=== PATIENT | female | born 1955 | race Caucasian/White ===

== ENCOUNTER → 2016-05-26 | Day surgery (SDC) | payer BC ==
[~2016-05-26] MED LIST: ACETAMINOPHEN 325 MG TAB ONE; KETOROLAC TROMETHAMINE 30 MG/ML (IVP) VIAL IV PUSH ONE; LACTATED RINGER'S 1000 ML INJ 1,000 ML ONE; ONDANSETRON HCL 4 MG/2 ML VIAL IV PUSH ONE; PROPOFOL 200 MG/20 ML AMP IV ONE; TRIAMCINOLONE ACETONIDE 40 MG/ML VIAL ONE; ceFAZolin INJ 1,000 MG VIAL ONE
--- NOTE | 2016-05-26 09:37 | TN ---
cc: ANAHI MEZA M.D. DATE OF SURGERY: May 26, 2016 PREOPERATIVE DIAGNOSIS Right knee internal derangement. POSTOPERATIVE DIAGNOSIS Right knee medial meniscus tear, medial compartment severe Osteoarthritis, patellofemoral compartment mild osteoarthritis. PROCEDURE Right knee arthroscopic surgery - subtotal medial meniscectomy. SURGEON Dontae Meza MD SLURRY CONTROL OPERATOR HELPER TAVARES Kaye SPECIMEN None. ESTIMATED BLOOD LOSS None. COMPLICATIONS None. ANESTHESIA General LMA - Dr. Harrington. DRAIN None. TOURNIQUET TIME 12 minutes at 250 mmHg. CONDITION Stable. PLAN OF ACTIVITY Per orders. PROCEDURE My melter assistant TAVARES Kaye was present for the entire surgical case. She was medically necessary for the entire case because of the complexity of the case and to facilitate the performance of the procedure. The CALENDER FEEDER at the back table was not a skill set for this case to manipulate the instruments, e.g., the arthroscopy, arthroscopic meniscal rongeurs and arthroscopic nani. The patient was brought in the operating room and had satisfactory general anesthesia by Dr. Harrington, Department of Anesthesia. Right lower extremity was prepped and draped in usual sterile manner. The extremity was exsanguinated by Rickey wrap. The tourniquet was inflated to 250 mmHg. Routine anterolateral and anterior medial incision was made to the knee. The arthroscopic instruments were introduced into the knee, the knee was inflated and irrigated with sterile Ringer's lactated solution. Patellofemoral compartment revealed mild degree of synovitis. No evidence of any cartilaginous loose bodies. Patellofemoral compartment revealed mild degree of chondromalacia of the femoral trochlear groove and the undersurface of the patella. Lateral compartment showed normal lateral meniscus and normal lateral articular surface. Anterior cruciate ligament was found to be intact. Medial compartment showed the patient to have a posterior medial meniscus tear. The patient had more than expected arthritis involving the medial compartment. The patient had exposed bone involving almost the entire medial femoral condyle and the medial tibial plateau. Subtotal meniscectomy was performed. The knee was irrigated with different types of meniscal rongeurs and nani. The wound was irrigated with copious amounts of Ringer's lactated solution. Arthroscopic instruments were removed. Tourniquet was deflated. Incisions were repaired using multiple interrupted 3-0 Nylon suture. Sterile dressing was applied. The patient tolerated the procedure well and arrived in the recovery room in stable and satisfactory conditon. MD YENIFER Nicholson/FLORA /9:16 AM /9:22 AM
== END | disposition home or self-care (01) ==
LOC: ESDC 07:20
PROVIDERS: ATTEND Orthopaedic Surgery Orthopaedic Surgery of the Spine
DX: S83.241A Other tear of medial meniscus, current injury, right knee, initial encounter (principal)
CPT/HCPCS: 01400; 29881; J0690; J1885; J2405; J3010; J3301; J7120

== ENCOUNTER 2016-10-28 11:54 | Emergency (ER) | payer BC ==
[~2016-10-28] VITALS: Ht 160 cm; Wt 75.0 kg
[2016-10-28 11:55] VITALS: BP 184/100; PULSE 100; RESP 20; TEMP 97.8; O2SAT 97
--- NOTE | 2016-10-28 12:05 | PD ---
Physical Exam Time Seen by Provider: 12:01 Narrative 61yo F c/o left mid back pain x 2 weeks. Worse with movement. Seen at urgent care one week ago and had chest x-ray which was negative; had UA and was told she had blood WBC and blood and has been taking Cipro. Denies urinary symptoms , abd pain. Denies chest pain, SOB in triage. Concerned of possible kidney infection. Patient seen in triage. VS reviewed. Awaiting bed placement. Data Data Last Documented VS Vital Signs Date Time Temp Pulse Resp B/P Pulse Ox O2 Delivery O2 Flow Rate FiO2 10/28/16 12:41 99 Room Air 10/28/16 11:55 97.8 100 20 184/100 Orders Electrocardiogram (10/28/16 12:29) Ckmb (Isoenzyme) Profile (10/28/16 12:29) Complete Blood Count With Diff (10/28/16 12:29) Comprehensive Metabolic Panel (10/28/16 12:29) D-Dimer (10/28/16 12:29) Magnesium (Mg) (10/28/16 12:29) Prothrombin Time / Inr (Pt) (10/28/16 12:29) Act Partial Throm Time (Ptt) (10/28/16 12:29) Troponin I (10/28/16 12:29) Lipase (10/28/16 12:29) Chest, Single Ap (10/28/16 12:29) Ecg Monitoring (10/28/16 12:29) Bilateral Bp Monitoring (10/28/16 12:29) Iv Access Insert/Monitor (10/28/16 12:29) Oximetry (10/28/16 12:29) Oxygen Administration (10/28/16 12:29) Aspirin Chew (Aspirin Chew) (10/28/16 12:30) Sodium Chloride 0.9% Flush (Ns Flush) (10/28/16 12:30) Urinalysis - C+S If Indicated (10/28/16 12:31) MDM Supervised Visit with DEE: No Scripts No Active Prescriptions or Reported Meds Annabella Mills Oct 28, 2016 12:05
[2016-10-28] MEDS ORDERED: ASPIRIN 81 MG CHEW TAB PO ONE (12:30)
[2016-10-28] MEDS ORDERED: SODIUM CHLORIDE 0.9% FLUSH 10 ML FLUSH IVF PRN (12:30)
--- NOTE | 2016-10-28 12:36 | PD ---
HPI Chief Complaint: Pain: Acute or Chronic Time Seen by Provider: 12:31 Travel History International Travel<30 days: No Contact w/Intl Traveler<30days: No Traveled to known affect area: No History of Present Illness HPI 61-year-old female presents to the emergency department for evaluation of left upper back pain that radiates to the chest. Patient states her symptoms started approximately 2 weeks ago. She denies any unusual activity or trauma. She states activity or movement does not worsen the symptoms. She was seen in urgent care center who did a chest x-ray and a urinalysis. She did have some white blood cells and blood in her urine so she was sent home with a prescription for ciprofloxacin. She states her chest x-ray did not show anything at that time. Patient does report a history of GERD with gastric ulcers. Patient denies any recent surgeries or travel. She denies any leg edema. Patient denies any hemoptysis. She denies a cough or congestion. Patient denies any history of DVT or PE. She denies any cardiac history. Patient does state that the pain will be slightly relieved with Aleve. Patient states she has had chills, but no documented fevers. She denies any urinary symptoms. No urgency, frequency, dysuria. She denies any abdominal pain. No nausea, vomiting or diarrhea. PFSH Past Medical History Diminished Hearing: No Gastrointestinal Disorders: Yes GERD: Yes Tetanus Vaccination: > 5 Years ?: Not Past Surgical History Surgical History: No Previous Surgery Social History Alcohol Use: No Tobacco Use: No Substance Use: No Allergies-Medications (Allergen,Severity, Reaction): Coded Allergies: No Known Allergies (Unverified , 10/28/16) Reported Meds & Prescriptions Reported Meds & Active Scripts Active No Active Prescriptions or Reported Medications Review of Systems Except as stated in HPI: all other systems reviewed are Neg Physical Exam Narrative GENERAL: Well-nourished, well-developed female patient, ambulatory. Afebrile. SKIN: Focused skin assessment warm/dry. No skin rash noted. HEAD: Normocephalic. Atraumatic. EYES: No scleral icterus. No injection or drainage. NECK: Supple, trachea midline. No JVD or lymphadenopathy. CARDIOVASCULAR: Regular rate and rhythm without murmurs, gallops, or rubs. RESPIRATORY: Breath sounds equal bilaterally. No accessory muscle use. Lungs sounds are clear to auscultation GASTROINTESTINAL: Abdomen soft, non-tender, nondistended. MUSCULOSKELETAL: No cyanosis, or edema. Left thoracic back pain is not reproducible with palpation. BACK: Nontender without obvious deformity. No CVA tenderness. Data Data Last Documented VS Vital Signs Date Time Temp Pulse Resp B/P Pulse Ox O2 Delivery O2 Flow Rate FiO2 10/28/16 13:38 75 18 176/98 98 10/28/16 12:41 Room Air 10/28/16 11:55 97.8 Orders Electrocardiogram (10/28/16 12:29) Ckmb (Isoenzyme) Profile (10/28/16 12:29) Complete Blood Count With Diff (10/28/16 12:29) Comprehensive Metabolic Panel (10/28/16 12:29) D-Dimer (10/28/16 12:29) Magnesium (Mg) (10/28/16 12:29) Prothrombin Time / Inr (Pt) (10/28/16 12:29) Act Partial Throm Time (Ptt) (10/28/16 12:29) Troponin I (10/28/16 12:29) Lipase (10/28/16 12:29) Chest, Single Ap (10/28/16 12:29) Ecg Monitoring (10/28/16 12:29) Bilateral Bp Monitoring (10/28/16 12:29) Iv Access Insert/Monitor (10/28/16 12:29) Oximetry (10/28/16 12:29) Oxygen Administration (10/28/16 12:29) Aspirin Chew (Aspirin Chew) (10/28/16 12:30) Sodium Chloride 0.9% Flush (Ns Flush) (10/28/16 12:30) Urinalysis - C+S If Indicated (10/28/16 12:31) Ct Pulmonary Angiogram (10/28/16 ) Iohexol 350 Inj (Omnipaque 350 Inj) (10/28/16 14:10) Labs Laboratory Tests Test 10/28/16 10/28/16 13:00 13:20 White Blood Count 8.5 TH/MM3 Red Blood Count 4.63 MIL/MM3 Hemoglobin 14.1 GM/DL Hematocrit 42.9 % Mean Corpuscular Volume 92.5 FL Mean Corpuscular Hemoglobin 30.5 PG Mean Corpuscular Hemoglobin 33.0 % Concent Red Cell Distribution Width 13.2 % Platelet Count 279 TH/MM3 Mean Platelet Volume 8.9 FL Neutrophils (%) (Auto) 71.0 % Lymphocytes (%) (Auto) 18.5 % Monocytes (%) (Auto) 9.5 % Eosinophils (%) (Auto) 0.3 % Basophils (%) (Auto) 0.7 % Neutrophils # (Auto) 6.0 TH/MM3 Lymphocytes # (Auto) 1.6 TH/MM3 Monocytes # (Auto) 0.8 TH/MM3 Eosinophils # (Auto) 0.0 TH/MM3 Basophils # (Auto) 0.1 TH/MM3 CBC Comment DIFF FINAL Differential Comment Prothrombin Time 10.0 SEC Prothromb Time International 0.9 RATIO Ratio Activated Partial 26.7 SEC Thromboplast Time D-Dimer Quantitative (PE/DVT) 0.86 MG/L FEU Sodium Level 140 MEQ/L Potassium Level 4.1 MEQ/L Chloride Level 108 MEQ/L Carbon Dioxide Level 24.4 MEQ/L Anion Gap 8 MEQ/L Blood Urea Nitrogen 14 MG/DL Creatinine 0.80 MG/DL Estimat Glomerular Filtration 73 ML/MIN Rate Random Glucose 117 MG/DL Calcium Level 8.8 MG/DL Magnesium Level 2.1 MG/DL Total Bilirubin 0.3 MG/DL Aspartate Amino Transf 27 U/L (AST/SGOT) Alanine Aminotransferase 62 U/L (ALT/SGPT) Alkaline Phosphatase 83 U/L Total Creatine Kinase 64 U/L Troponin I LESS THAN 0.02 NG/ML Total Protein 7.7 GM/DL Albumin 3.9 GM/DL Lipase 177 U/L Urine Color LIGHT-YELLOW Urine Turbidity CLEAR Urine pH 5.5 Urine Specific [place] 1.008 Urine Protein NEG mg/dL Urine Glucose (UA) TRACE mg/dL Urine Ketones NEG mg/dL Urine Occult Blood TRACE Urine Nitrite NEG Urine Bilirubin NEG Urine Urobilinogen LESS THAN 2.0 MG/DL Urine Leukocyte Esterase NEG Urine RBC 1 /hpf Urine WBC LESS THAN 1 /hpf Microscopic Urinalysis Comment CULT NOT INDICATED MDM Medical Decision Making Medical Screen Exam Complete: Yes Emergency Medical Condition: Yes Medical Record Reviewed: Yes Interpretation(s) Last Impressions Chest X-Ray 10/28/16 1229 Signed Impressions: Service Date/Time: Friday, October 28, 2016 12:32 - CONCLUSION: No acute disease. Byron Acosta MD CT Angiography 10/28/16 0000 Signed Impressions: Service Date/Time: Friday, October 28, 2016 13:59 - CONCLUSION: 1. No evidence of pulmonary embolism 2. No acute pulmonary infiltrates Byron Acosta MD Differential Diagnosis ACS versus pneumonia versus pneumothorax versus musculoskeletal pain versus PE Narrative Course 61-year-old female presents to the emergency department for evaluation of thoracic back pain that well occasionally radiate to the chest. She denies any chest pain at this time. She denies any history of the same. She denies any history of trauma. EKG, CBC, CMP, CK, troponin, lipase, magnesium, PTT, PTT/INR , d-dimer ordered and pending. Chest x-ray is ordered and pending. UA is ordered and pending. Patient is given aspirin 162 mg by mouth. EKG shows SR, HR 82, no acute ST changes. CBC shows no acute abnormality. CMP shows no acute abnormality. CK is 64. Troponin is less than 0.02. Lipase is 177. Magnesium is 2.1. Coags are unremarkable. D-dimer is elevated 0.86. Chest x-ray shows no acute disease. CT pulmonary angiogram is ordered and pending. CT pulmonary angiogram shows No evidence of pulmonary embolism; no acute pulmonary infiltrates. I offered chest pain center admission to the patient to rule out cardiac disease. However, patient states that she does not want to stay in the hospital. She states she will follow up with her primary care physician. She is to return for any acute, worsening of symptoms. Patient will be given prescription for Robaxin for possible muscle strain/ spasm. She agrees with this. Diagnosis Primary Impression: Thoracic back pain Qualified Code: M54.6 - Acute left-sided thoracic back pain Referrals: Primary Care Physician 2 days Patient Instructions: General Instructions, Thoracic Back Strain (ED) Additional Instructions: You have declined chest pain center admission for further testing. Please follow up with your primary care physician. Continue Aleve as needed for pain. Take Robaxin as directed as needed. Return to the emergency department for any acute worsening of symptoms. Med/Other Pt SpecificInfo: Prescription(s) given Scripts Methocarbamol (Robaxin)750 Mg Ubb720 Mg PO TID PRN (MUSCLE SPASM) #21 TAB Ref 0 Prov:Mitali Saenz 10/28/16 Disposition: 01 DISCHARGE HOME Condition: Stable Mitali Saenz CRACKING UNIT OPERATOR Oct 28, 2016 12:36
--- NOTE | 2016-10-28 13:00 | RADRPT ---
EXAM DATE/TIME: 10/28/2016 12:32 [facility] COMPARISON: No previous studies available for comparison. INDICATIONS : Upper left back pain x2 weeks ridiating into left arm and chest. MEDICAL HISTORY : None. SURGICAL HISTORY : None. ENCOUNTER: Initial ACUITY: 2 weeks PAIN SCORE: 6/10 LOCATION: Left chest FINDINGS: A single view of the chest demonstrates the lungs to be symmetrically aerated without evidence of mas s, infiltrate or effusion. The cardiomediastinal contours are unremarkable. Osseous structures are intact. CONCLUSION: No acute disease. Byron Acosta MD on October 28, 2016 at 12:58 Board Certified Radiologist. This report was verified electronically.
[2016-10-28 13:11] VITALS: BP 170/65
[2016-10-28 13:11] LABS: BASOPHIL # 0.1 TH/MM3 (0-0.2); BASOPHIL % 0.7 % (0.0-2.0); EOSINOPHIL % 0.3 % (0.0-4.0); HEMATOCRIT 42.9 % (35.0-46.0); HEMO FLAGS DIFF FINAL; LYMPH % 18.5 % (9.0-44.0); LYMPHOCYTE # 1.6 TH/MM3 (1.0-4.8); MEAN CELL VOLUME 92.5 FL (80.0-100.0); MEAN CORPUSCULAR HEMOGLOBIN 30.5 PG (27.0-34.0); MONO % 9.5 % (0.0-8.0); PLATELET COUNT 279 TH/MM3 (150-450); RED BLOOD COUNT 4.63 MIL/MM3 (4.00-5.30); RED CELL DISTRIBUTION WIDTH 13.2 % (11.6-17.2); WHITE BLOOD COUNT 8.5 TH/MM3 (4.0-11.0)
[2016-10-28 13:28] LABS: APTT (PATIENT) 26.7 SEC (24.3-30.1); INTERNATIONAL NORMALIZED RATIO 0.9 RATIO
[2016-10-28 13:29] LABS: BLOOD, URINE TRACE (NEG); GLUCOSE,URINE TRACE mg/dL (NEG); KETONE, URINE NEG (NEG); NITRITE,URINE NEG (NEG); PH, URINE 5.5 (5.0-8.5); URINE COLOR LIGHT-YELLOW (YELLW/STRAW)
[2016-10-28 13:30] LABS: COMMENT (UR) CULT NOT INDICATED; CULTURE IF INDICATED CULT NOT INDICATED
[2016-10-28 13:31] LABS: ALT (GPT) 62 U/L (10-53); ANION GAP 8 MEQ/L (5-15); AST (GOT) 27 U/L (15-37); BICARBONATE 24.4 MEQ/L (21.0-32.0); BLOOD UREA NITROGEN 14 MG/DL (7-18); CHLORIDE 108 MEQ/L (98-107); GLOMERULAR FILTRATION RATE 73 ML/MIN (>89); MAGNESIUM 2.1 MG/DL (1.5-2.5); POTASSIUM 4.1 MEQ/L (3.5-5.1); SODIUM (NA) 140 MEQ/L (136-145)
[2016-10-28 13:35] LABS: ALKALINE PHOSPHATASE 83 U/L (45-117); TOTAL BILIRUBIN ADULT 0.3 MG/DL (0.2-1.0)
[2016-10-28 13:38] VITALS: BP 176/98; PULSE 75; RESP 18; O2SAT 79; O2SAT 98
[2016-10-28 13:48] LABS: CREATINE KINASE 64 U/L (26-192)
[2016-10-28] MEDS ORDERED: IOHEXOL 350 MG/ML 10 ML VIAL (for RAD DIAG) IV ONE (14:10)
--- NOTE | 2016-10-28 14:16 | RADRPT ---
EXAM DATE/TIME: 10/28/2016 13:59 [facility] COMPARISON: No previous studies available for comparison. INDICATIONS : Left upper back pain for 2 weeks. IV CONTRAST: 70 cc Omnipaque 350 (iohexol) IV RADIATION DOSE: 23.10 CTDIvol (mGy) MEDICAL HISTORY : None SURGICAL HISTORY : None. ENCOUNTER: Initial ACUITY: 2 weeks PAIN SCALE: 5/10 LOCATION: Left upper back. TECHNIQUE: Volumetric scanning of the chest was performed using a pulmonary embolism protocol MIP images were re constructed. Using automated exposure control and adjustment of the mA and/or kV according to patien t size, radiation dose was kept as low as reasonably achievable to obtain optimal diagnostic quality images. DICOM format image data is available electronically for review and comparison. FINDINGS: PULMONARY ARTERIES: No filling defects are seen in the pulmonary arteries through the segmental level. LUNGS: There is no consolidation or pneumothorax . No concerning pulmonary nodule is visualized. PLEURAE: There is no pleural thickening or pleural effusion. MEDIASTINUM: There is good visualization of the great vessels of the middle mediastinum. No evidence of mediastin al or hilar adenopathy/mass. MUSCULOSKELETAL: Within normal limits for patient age. MISCELLANEOUS: The visualized upper abdominal organs demonstrate no acute abnormality. CONCLUSION: 1. No evidence of pulmonary embolism 2. No acute pulmonary infiltrates Byron Acosta MD on October 28, 2016 at 14:11 Board Certified Radiologist. This report was verified electronically.
[2016-10-28 15:00] VITALS: BP 160/74
[2016-10-28] MEDS ORDERED: ROBA750T PO (15:03)
--- NOTE | 2016-10-29 16:55 | EKG ---
Date Performed: 10/28/2016 Time Performed: 12:39:38 PTAGE: 61 years EKG: Sinus rhythm MODERATE VOLTAGE CRITERIA FOR LVH, CONSIDER NORMAL VARIANT POSSIBLE ANTERIOR MYOCARDIAL INFARCTION B ORDERLINE ECG NO PREVIOUS TRACING DOCTOR: Je Anguiano Interpretating Date/Time 10/29/2016 16:54:16
== END 2016-10-28 15:17 | disposition home or self-care (01) ==
LOC: NEPD 11:54
DX: M54.6 Pain in thoracic spine (principal); K21.9 Gastro-esophageal reflux disease without esophagitis; R07.9 Chest pain, unspecified
CPT/HCPCS: 71010; 71275; 80053; 81001; 82550; 83690; 83735; 84484; 85025; 85379; 85610; 85730; 93005; 99285; Q9967